=== PATIENT | female | born 1960 | race Caucasian/White ===

== ENCOUNTER 2025-03-03 09:51 | Emergency (ER) | payer MEDICARE ==
[~2025-03-03] VITALS: Ht 162.6 cm; Wt 68.0 kg
[2025-03-03 09:55] VITALS: O2SAT 98
[2025-03-03] MEDS: ACETAMINOPHEN 500MG TABLET PO ONE (10:36)
[2025-03-03] MEDS: LIDOCAINE 5% PATCH TOP SCH (10:36)
[2025-03-03] MEDS ORDERED: ACET-2708 MT (10:59)
[2025-03-03] MEDS ORDERED: LIDO-53 TP (10:59)
[2025-03-03] MEDS: KETOROLAC 30MG/ML VIAL IM ONE (11:23)
[2025-03-03 11:32] VITALS: BP 140/54; PULSE 73; RESP 18; TEMP 36.9; O2SAT 98
== END 2025-03-03 12:04 | disposition home or self-care (01) ==
LOC: ER 10:15
DX: M54.50 Low back pain, unspecified (principal); E78.00 Pure hypercholesterolemia, unspecified; I10 Essential (primary) hypertension; Z98.890 Other specified postprocedural states
CPT/HCPCS: 99283